=== PATIENT | female | born 1995 | race Caucasian/White ===

== ENCOUNTER 2018-07-03 19:53 | Emergency (ER) | payer OTHER ==
[2018-07-03 20:25] VITALS: BP 133/75
[2018-07-03] MEDS ORDERED: diPHENhydraMINE PO* 50 MG PO ONE (20:34)
[2018-07-03] MEDS ORDERED: predniSONE TAB* 20 MG PO ONE (20:34)
--- NOTE | 2018-07-03 20:42 | UC ---
Allergic Reaction HPI - HPI Summary HPI Summary: Patient complains of pain and swelling to left hand after insect bite last night. Believes but like to be from mosquito. History of reactions to mosquito bites but states this is been the worst ever. Denies any other symptoms or pain, facial swelling, tongue swelling, shortness of breath, throat swelling. - History of Current Complaint Chief Complaint: UCUpperExtremity Stated Complaint: INSECT BITE Time Seen by Provider: 07/03/18 20:30 Hx Obtained From: Patient Hx Last Menstrual Period: 07/01/18 Onset/Duration: Sudden Onset Severity Initially: Moderate Severity Currently: Moderate Pain Intensity: 5 Pain Scale Used: 0-10 Numeric Character: Swelling, Pruritus, Pain Aggravating Factor(s): Nothing Alleviating Factor(s): Nothing Associated Signs And Symptoms: Positive: Negative - Allergies/Home Medications Allergies/Adverse Reactions: Allergies Allergy/AdvReac Type Severity Reaction Status Date / Time wheat extract Allergy See Comment Uncoded 07/03/18 20:25 Home Medications: Home Medications Acetaminophen [Tylenol Extra Strength] 1,000 mg PO Q8HR PRN 07/03/18 [History Confirmed 07/03/18] Desoximetasone [Topicort] 1 spray TOPICAL BID 07/03/18 [History Confirmed ] PMH/Surg Hx/FS Hx/Imm Hx Previously Healthy: Yes - Surgical History Surgical History: Yes Surgery Procedure, Year, and Place: wisdom teeth and dental implant 2014; left ear "bump" removed - Family History Known Family History: Positive: None - Social History Alcohol Use: Occasionally Substance Use Type: None Smoking Status (MU): Never Smoked Tobacco - Immunization History Most Recent Tetanus Shot: 2013 Review of Systems Constitutional: Negative Skin: Other Eyes: Negative ENT: Negative Respiratory: Negative Cardiovascular: Negative Gastrointestinal: Negative Genitourinary: Negative Motor: Negative Neurovascular: Negative Musculoskeletal: Negative Neurological: Negative Psychological: Negative Is Patient Immunocompromised?: No All Other Systems Reviewed And Are Negative: Yes Physical Exam - Summary Physical Exam Summary: Positive swelling, erythema to the dorsal surface of left hand. Likely insect bite at base of left fourth digit dorsal surface. Decreased range of motion of fingers of left hand. PMS intact distally Triage Information Reviewed: Yes Appearance: Well-Appearing Vital Signs: Initial Vital Signs Temp 99.4 F 07/03/18 20:21 Pulse 96 07/03/18 20:21 Resp 16 07/03/18 20:21 BP 133/75 07/03/18 20:21 Pulse Ox 99 07/03/18 20:21 Vital Signs Reviewed: Yes Eye Exam: Normal ENT Exam: Normal Neck exam: Normal Respiratory Exam: Normal Cardiovascular Exam: Normal Abdominal Exam: Normal Musculoskeletal Exam: Normal Neurological Exam: Normal Psychological Exam: Normal Skin Exam: Other Allergic Reaction Course/Dx - Course Course Of Treatment: Patient complains of pain and swelling to left hand after insect bite last night. Believes but like to be from mosquito. History of reactions to mosquito bites but states this is been the worst ever. Denies any other symptoms or pain, facial swelling, tongue swelling, shortness of breath, throat swelling. Physical exam:Positive swelling, erythema to the dorsal surface of left hand. Likely insect bite at base of left fourth digit dorsal surface. Decreased range of motion of fingers of left hand. PMS intact distally. Vital signs normal. She started on prednisone 60mg and Benadryl 50mg here in [facility]. Rx for prednisone. Patient boyfriend will drive her home - Differential Dx/Diagnosis Provider Diagnoses: allergic reaction to bug bite Discharge - Sign-Out/Discharge Documenting (check all that apply): Patient Departure All imaging exams completed and their final reports reviewed: No Studies - Discharge Plan Condition: Stable Disposition: HOME Prescriptions: predniSONE TAB* [Deltasone 20 MG TAB*] 40 mg PO DAILY 5 Days #5 tab Referrals: No Primary Care Phys,NOPCP [Primary Care Provider] - Additional Instructions: May take benadryl with prednisone for itching and swelling if needed. - Billing Disposition and Condition Condition: STABLE Disposition: Home - Attestation Statements Provider Attestation: Per institutional requirements, I have reviewed the chart, however, I was not consulted specifically or made aware of this patient by the midlevel provider. I did not personally evaluate, interact with , or disposition this patient.
== END 2018-07-03 20:56 | disposition home or self-care (01) ==
LOC: UCEAST 19:53
DX: S60.562A Insect bite (nonvenomous) of left hand, initial encounter (principal); W57.XXXA Bitten or stung by nonvenomous insect and other nonvenomous arthropods, initial encounter; Y93.9 Activity, unspecified; Y92.9 Unspecified place or not applicable
CPT/HCPCS: 99202; A9270-GY; G0463; J7512